=== PATIENT | female | born 1955 | race Caucasian/White ===

== ENCOUNTER → 2016-11-06 | Outpatient (CLI) | payer MEDICARE ==
--- NOTE | 2016-11-06 13:08 | MR ---
EXAMINATION TYPE: MR brain wo con DATE OF EXAM: 11/06/2016 1:01 PM. COMPARISON: NONE. HISTORY: Headache. Technique: Multiplanar, multiecho imaging of the brain was obtained without intravenous contrast. FINDINGS: Midline structures are unremarkable. There is a normal craniocervical junction. Echo planar diffusion imaging is normal. There are normal vascular flow voids. The orbits are normal. There is no evidence of a CP angle mass lesion. There are scattered, 1 to 2 mm high signal FLAIR lesions in the deep white matter tracts of the cereb ral hemispheres. These are nonspecific. A differential diagnosis includes migraine headache, hyperten radha, small vessel disease, demyelination and Lyme' s disease. There is no mass effect, midline shift or intracranial blood. IMPRESSION: 1. NO ACUTE INTRACRANIAL ABNORMALITY. 2. SCATTERED, TINY HIGH SIGNAL FLAIR LESIONS. DIFFERENTIAL DIAGNOSIS IS GIVEN ABOVE.
== END | disposition home or self-care (01) ==
LOC: RADMRIMAIN 12:15
PROVIDERS: ATTEND Nurse Practitioner Acute Care
DX: G93.9 Disorder of brain, unspecified (principal)
CPT/HCPCS: 70551

== ENCOUNTER 2017-07-07 16:16 | Observation (INO) | payer MEDICARE ==
[2017-07-07] MEDS ORDERED: NITROGLYCERIN OINT 1 INCH/GM PACKET TOPICAL STA (16:24)
--- NOTE | 2017-07-07 16:41 | ED ---
General Adult HPI - General Chief complaint: Chest Pain Stated complaint: Chest Pain Time Seen by Provider: 07/07/17 16:20 Source: patient, RN notes reviewed Mode of arrival: EMS Limitations: no limitations - History of Present Illness Initial comments: This is a 62-year-old female who presents to the emergency department complaining of chest pain. EMS got to the scene and the patient was complaining of heaviness on her chest and shortness of breath. EMS gave her 2 sublingual nitroglycerin at which point in time her pressure dropped and she became very diaphoretic. Patient stated to the social sciences research scientist that her chest pain was actually getting worse. Currently the patient states her chest pain is no worse than it was and she is still somewhat short of breath. But her lightheadedness is feeling better. Patient denies any nausea or vomiting. Patient denies headache patient denies numbness weakness. Patient denies any diabetes hypertension high cholesterol. Patient denies smoking. Patient denies any family history of heart disease. - Related Data Home Medications Medication Instructions Recorded Confirmed Estradiol [Climara 0.025 MG] 1 patch TRANSDERM WE 07/07/17 07/07/17 Ferrous Sulfate [Feosol] 325 mg PO DAILY 07/07/17 07/07/17 Gabapentin 600 mg PO HS 07/07/17 07/07/17 Levothyroxine Sodium [Synthroid] 125 mcg PO DAILY 07/07/17 07/07/17 Magnesium Oxide [Mag-Ox] 250 mg PO BID 07/07/17 07/07/17 Progesterone, Micronized 200 mg PO DIRECTED 07/07/17 07/07/17 [Progesterone] SUMAtriptan SUCCINATE [Imitrex] 100 mg PO DAILY PRN 07/07/17 07/07/17 SUMAtriptan SUCCINATE [Sumavel 6 mg SQ DAILY PRN 07/07/17 07/07/17 Dosepro] Zolpidem [Ambien] 10 mg PO HS 07/07/17 07/07/17 Allergies Allergy/AdvReac Type Severity Reaction Status Date / Time No Known Allergies Allergy Verified 07/07/17 16:47 Review of Systems ROS Statement: Those systems with pertinent positive or pertinent negative responses have been documented in the HPI. ROS Other: All systems not noted in ROS Statement are negative. Past Medical History Past Medical History: Thyroid Disorder History of Any Multi-Drug Resistant Organisms: None Reported Additional Past Surgical History / Comment(s): gastric bypass Past Psychological History: No Psychological Hx Reported Smoking Status: Never smoker Past Alcohol Use History: None Reported Past Drug Use History: None Reported General Exam - General Exam Comments Initial Comments: GENERAL: Patient is well-developed and well-nourished. Patient is nontoxic and well- hydrated and is in mild distress. ENT: Neck is soft and supple. No significant lymphadenopathy is noted. Oropharynx is clear. Moist mucous membranes. Neck has full range of motion without eliciting any pain. EYES: The sclera were anicteric and conjunctiva were pink and moist. Extraocular movements were intact and pupils were equal round and reactive to light. Eyelids were unremarkable. PULMONARY: Unlabored respirations. Good breath sounds bilaterally. No audible rales rhonchi or wheezing was noted. CARDIOVASCULAR: There is a regular rate and rhythm without any murmurs gallops or rubs. ABDOMEN: Soft and nontender with normal bowel sounds. No palpable organomegaly was noted. There is no palpable pulsatile mass. SKIN: Skin is clear with no lesions or rashes and otherwise unremarkable. NEUROLOGIC: Patient is alert and oriented x3. Cranial nerves II through XII are grossly intact. Motor and sensory are also intact. Normal speech, volume and content. Symmetrical smile. MUSCULOSKELETAL: Normal extremities with adequate strength and full range of motion. No lower extremity swelling or edema. No calf tenderness. LYMPHATICS: No significant lymphadenopathy is noted PSYCHIATRIC: Normal psychiatric evaluation. Normal interpersonal interactions appears functionally intact in deals appropriately with others. No signs of depression. No signs of anxiety. Limitations: no limitations Course Vital Signs 07/07/17 16:25 Temperature 98 F Pulse Rate 64 Respiratory 22 Rate Blood Pressure 124/62 O2 Sat by Pulse 100 Oximetry Medical Decision Making - Medical Decision Making EKG shows normal sinus rhythm at 67 bpm ME interval is 126 dresses 82 QT interval 426 QTC of 450. Patient's EKG shows no ST segment elevation or depression or T wave normalities are noted Chest x-ray shows no acute abnormality. Patient states her chest pain is better. I spoke with Dr. Light admitted the patient I wrote admitting orders I consult at cardiology. I started the patient on heparin because the significance of her chest pain difficulty breathing and diaphoresis. - Lab Data Result diagrams: 07/07/17 15:32 07/07/17 15:32 Lab Results 07/07/17 07/07/17 07/07/17 Range/Units 15:32 15:32 15:32 WBC 8.1 (3.8-10.6) k/uL RBC 3.92 (3.80-5.40) m/uL Hgb 12.3 (11.4-16.0) gm/dL Hct 38.2 (34.0-46.0) % MCV 97.4 (80.0-100.0) fL MCH 31.3 (25.0-35.0) pg MCHC 32.2 (31.0-37.0) g/dL RDW 13.0 (11.5-15.5) % Plt Count 243 (150-450) k/uL Neutrophils % 39 % Lymphocytes % 48 % Monocytes % 5 % Eosinophils % 5 % Basophils % 1 % Neutrophils # 3.2 (1.3-7.7) k/uL Lymphocytes # 3.9 (1.0-4.8) k/uL Monocytes # 0.4 (0-1.0) k/uL Eosinophils # 0.4 (0-0.7) k/uL Basophils # 0.1 (0-0.2) k/uL PT (9.0-12.0) sec INR (<1.2) APTT (22.0-30.0) sec D-Dimer (<0.60) mg/L FEU Sodium 138 (137-145) mmol/L Potassium 3.4 L (3.5-5.1) mmol/L Chloride 108 H (98-107) mmol/L Carbon Dioxide 19 L (22-30) mmol/L Anion Gap 11 mmol/L BUN 14 (7-17) mg/dL Creatinine 0.80 (0.52-1.04) mg/dL Est GFR (MDRD) Af Amer >60 (>60 ml/min/1.73 sqM) Est GFR (MDRD) Non-Af >60 (>60 ml/min/1.73 sqM) Glucose 106 H (74-99) mg/dL Calcium 8.9 (8.4-10.2) mg/dL Magnesium 1.9 (1.6-2.3) mg/dL Total Bilirubin 0.3 (0.2-1.3) mg/dL AST 23 (14-36) U/L ALT 24 (9-52) U/L Alkaline Phosphatase 96 (38-126) U/L Total Creatine Kinase 64 (30-135) U/L CK-MB (CK-2) 0.5 (0.0-2.4) ng/mL CK-MB (CK-2) Rel Index 0.8 Troponin I <0.012 (0.000-0.034) ng/mL Total Protein 5.6 L (6.3-8.2) g/dL Albumin 3.5 (3.5-5.0) g/dL 07/07/17 Range/Units 15:32 WBC (3.8-10.6) k/uL RBC (3.80-5.40) m/uL Hgb (11.4-16.0) gm/dL Hct (34.0-46.0) % MCV (80.0-100.0) fL MCH (25.0-35.0) pg MCHC (31.0-37.0) g/dL RDW (11.5-15.5) % Plt Count (150-450) k/uL Neutrophils % % Lymphocytes % % Monocytes % % Eosinophils % % Basophils % % Neutrophils # (1.3-7.7) k/uL Lymphocytes # (1.0-4.8) k/uL Monocytes # (0-1.0) k/uL Eosinophils # (0-0.7) k/uL Basophils # (0-0.2) k/uL PT 10.2 (9.0-12.0) sec INR 1.0 (<1.2) APTT 21.6 L (22.0-30.0) sec D-Dimer 0.43 (<0.60) mg/L FEU Sodium (137-145) mmol/L Potassium (3.5-5.1) mmol/L Chloride (98-107) mmol/L Carbon Dioxide (22-30) mmol/L Anion Gap mmol/L BUN (7-17) mg/dL Creatinine (0.52-1.04) mg/dL Est GFR (MDRD) Af Amer (>60 ml/min/1.73 sqM) Est GFR (MDRD) Non-Af (>60 ml/min/1.73 sqM) Glucose (74-99) mg/dL Calcium (8.4-10.2) mg/dL Magnesium (1.6-2.3) mg/dL Total Bilirubin (0.2-1.3) mg/dL AST (14-36) U/L ALT (9-52) U/L Alkaline Phosphatase (38-126) U/L Total Creatine Kinase (30-135) U/L CK-MB (CK-2) (0.0-2.4) ng/mL CK-MB (CK-2) Rel Index Troponin I (0.000-0.034) ng/mL Total Protein (6.3-8.2) g/dL Albumin (3.5-5.0) g/dL Critical Care Time Critical Care Time: Yes Total Critical Care Time: 35 Disposition Clinical Impression: Unstable angina pectoris Disposition: ADMITTED IP TO THIS HOSP Referrals: Lawrence Dubon MD [Primary Care Provider] - 1-2 days Time of Disposition: 17:30
[2017-07-07 16:46] LABS: Basophils # (A) 0.1 k/uL (0-0.2); Basophils % (A) 1 %; CH 31.1; CHCM 32.1; Eosinophils # (A) 0.4 k/uL (0-0.7); Eosinophils % (A) 5 %; HCT 38.2 % (34.0-46.0); HDW 2.34; HGB 12.3 gm/dL (11.4-16.0); Luc # (Auto) 0.18; Luc % (Auto) 2; Lymphocytes # (A) 3.9 k/uL (1.0-4.8); Lymphocytes % (A) 48 %; MCH 31.3 pg (25.0-35.0); MCHC 32.2 g/dL (31.0-37.0); MCV 97.4 fL (80.0-100.0); Mean Platelet Volume 7.1; Monocytes # (A) 0.4 k/uL (0-1.0); Monocytes % (A) 5 %; Neutrophils # (A) 3.2 k/uL (1.3-7.7); Neutrophils % (A) 39 %; RBC 3.92 m/uL (3.80-5.40); WBC 8.1 k/uL (3.8-10.6); WBC (Perox) 8.18
--- NOTE | 2017-07-07 16:54 | XR ---
EXAMINATION TYPE: XR chest 2V DATE OF EXAM: 07/07/2017 COMPARISON: NONE HISTORY: Shortness of breath TECHNIQUE: Frontal and lateral views of the chest are obtained. FINDINGS: Scattered senescent parenchymal changes noted. Hyperinflation compatible with COPD. No evidence for infiltrate. No evidence for atelectasis. Heart size is stable. Mediastinal structures are stable and grossly unremarkable. No evidence for hilar prominence. Degenerative changes dorsal spine. IMPRESSION: 1. No evidence for acute pulmonary disease.
[2017-07-07 16:59] LABS: ALT 24 U/L (9-52); AST 23 U/L (14-36); Alkaline Phosphatase 96 U/L (38-126); Anion Gap 11 mmol/L; Blood Urea Nitrogen 14 mg/dL (7-17); Calcium 8.9 mg/dL (8.4-10.2); Carbon Dioxide 19 mmol/L (22-30); Chloride 108 mmol/L (98-107); Glucose 106 mg/dL (74-99); Magnesium 1.9 mg/dL (1.6-2.3); Non-African American GFR(MDRD) >60 (>60 ml/min/1.73 sqM); Potassium 3.4 mmol/L (3.5-5.1); Sodium 138 mmol/L (137-145); Total Bilirubin 0.3 mg/dL (0.2-1.3); Total Protein 5.6 g/dL (6.3-8.2)
[2017-07-07 17:01] LABS: Creatine Kinase 64 U/L (30-135)
[2017-07-07 17:06] LABS: Partial Thromboplastin Time 21.6 sec (22.0-30.0); Prothrombin Time 10.2 sec (9.0-12.0)
[2017-07-07 17:13] LABS: Creatine Kinase MB 0.5 ng/mL (0.0-2.4); Troponin I <0.012 ng/mL (0.000-0.034)
[2017-07-07] MEDS ORDERED: HEPARIN SODIUM,PORCINE 5,000 UNIT/ML 1 ML VIAL IV ONE (17:30)
[2017-07-07] MEDS ORDERED: HEPARIN SODIUM,PORCINE/D5W PMX 25,000 UNIT in DEXTROSE/WATER 1 500ML.BAG IV SCH (17:30)
[2017-07-07] MEDS ORDERED: NITROGLYCERIN SL TABS 0.4 MG TAB SUBLINGUAL PRN (17:31)
[2017-07-07 19:44] VITALS: BMI 26.4
[2017-07-07] MEDS ORDERED: SUMAtriptan SUCCINATE 50 MG TAB PO PRN (20:30)
[2017-07-07] MEDS ORDERED: PROGESTERONE MICRONIZED 200 MG PO SCH (20:30)
[2017-07-07] MEDS ORDERED: RX INFO: IV CONTRAST WAS GIVEN 1 EACH MISC MISCELLANE PRN (20:30)
[2017-07-07] MEDS ORDERED: GABAPENTIN 300 MG CAP PO SCH (21:00)
[2017-07-07] MEDS ORDERED: ZOLPIDEM 10 MG TAB PO SCH (21:00)
[2017-07-07] MEDS ORDERED: ACETAMINOPHEN TAB 325 MG TAB PO PRN (21:19)
--- NOTE | 2017-07-07 21:28 | CT ---
EXAMINATION TYPE: CT angio chest DATE OF EXAM: 07/07/2017 9:00 PM COMPARISON: NONE HISTORY: Mid chest pain and shortness of breath. CT DLP: 302.90 mGycm Automated exposure control for dose reduction was used. CONTRAST: CTA scan of the thorax is performed with IV Contrast, patient injected with 75 mL of Omnipaque 350, p ulmonary embolism protocol. . FINDINGS: LUNGS: The lungs are grossly clear, there is no concerning parenchymal mass or nodule identified. T here is no pleural effusion or pneumothorax seen. The tracheobronchial tree is patent. MEDIASTINUM: There is satisfactory enhancement of the pulmonary artery and its branches, there is no CT evidence for pulmonary embolism. There are no greater than 1 cm hilar or mediastinal lymph nodes. No pericardial effusion is seen. OTHER: No additional significant abnormality is seen. IMPRESSION: NO ACUTE PROCESS.
[2017-07-07] MEDS: MAGNESIUM OXIDE 400 MG TAB PO SCH (21:30)
[2017-07-07 23:01] LABS: Creatine Kinase 60 U/L (30-135)
[2017-07-07 23:13] LABS: Troponin I <0.012 ng/mL (0.000-0.034)
[2017-07-07 23:18] LABS: Creatine Kinase MB 0.5 ng/mL (0.0-2.4)
[2017-07-07] MEDS: NITROGLYCERIN OINT 1 INCH/GM PACKET TOPICAL SCH (23:46)
[2017-07-08 00:21] VITALS: TEMP 97.9
[2017-07-08 03:21] LABS: Cholesterol 98 mg/dL (<200); HDL Cholesterol 60 mg/dL (40-60)
[2017-07-08 03:37] LABS: Creatine Kinase 68 U/L (30-135)
[2017-07-08 03:50] LABS: Creatine Kinase MB 0.8 ng/mL (0.0-2.4); Troponin I <0.012 ng/mL (0.000-0.034)
[2017-07-08] MEDS: NITROGLYCERIN OINT 1 INCH/GM PACKET TOPICAL SCH (05:22)
--- NOTE | 2017-07-08 05:44 | HP ---
HISTORY AND PHYSICAL DATE OF SERVICE: 07/07/2007. CHIEF COMPLAINT: Chest pain. HISTORY: This 62-year-old woman with a past medical history of multiple medical problems including DVT, history of hypothyroidism, history of chronic migraines being followed by in the outpatient setting is complaining of chest pain. Patient apparently had a stress test about 2 years ago which was negative. The chest pain felt more like a heaviness and which is radiating to the left lower part in the lungs. No shortness of breath. EMS gave 2 sublingual nitro which resulted in hypotension and because of increasing pain the patient came to [facility] and was admitted to [facility] for further evaluation and treatment. There is no history of any fever, rigors. No headache, loss of consciousness or seizures. The patient also had episode of pleurisy previously. PAST MEDICAL HISTORY: History of DVT, history hypothyroidism, history of chronic migraine, history of epidural injections. MEDICATIONS PRIOR TO ADMISSION: Include home medications are: 1. Ambien 10 mg q.h.s. 2. Imitrex 100 mg daily p.r.n. 3. Progesterone 200 mg p.r.n. 4. Magnesium oxide 250 mg. 5. Synthroid 100 mcg p.o. daily. 6. Gabapentin 300 mg. 7. Iron sulfate 325 mg daily. 8. Climara 0.025 patch transderm. ALLERGIES: None. FAMILY HISTORY: History of diabetes and tremors in the family. SOCIAL HISTORY: No history of smoking. No history of alcohol. REVIEW OF SYSTEMS: ENT: No diminished hearing or vision. CARDIOVASCULAR: As mentioned. RESPIRATORY: As mentioned earlier. GI: As mentioned. : No dysuria. NERVOUS SYSTEMS: No numbness or weakness. ALLERGY/IMMUNOLOGY: No history of asthma or hayfever. MUSCULOSKELETAL: As mentioned earlier. HEMATOLOGY/ONCOLOGY: No history of anemia. ENDOCRINE: Hypothyroid. CONSTITUTIONAL: As mentioned earlier. DERMATOLOGY: Negative. RHEUMATOLOGY: Negative. PSYCHIATRY: As mentioned earlier. PHYSICAL EXAMINATION: Alert and oriented x3. Pulse 87, blood pressure 110/58, respiration 18, temperature 97.2, pulse ox 100% on 2 L. HEENT: Conjunctivae normal. Oral mucosa moist. NECK: No jugular venous distention. No carotid bruit. No lymph node enlargement. CARDIOVASCULAR: S1, S2 normal. No S3, no S4. RESPIRATORY: Breath sounds diminished in the bases. A few scattered rhonchi. No crackles. No adventitious sounds. ABDOMEN: Soft, nontender. No mass palpable. No hepatosplenomegaly. LEGS: No edema no swelling. NERVOUS SYSTEM: Higher functions as mentioned. Moves all four limbs. No focal motor deficits. LYMPHATICS: No lymphadenopathy in the neck, axillae or groin. SKIN: No rash, ulcer or bleeding. LAB: CBC within normal. D-dimer is 0.43, potassium 3.4. Troponin 5.6. The chest x- ray normal. EKG shows no acute change. ASSESSMENT: 1. Chest pain, rule out unstable angina. 2. Possible pleurisy or gastroesophageal reflux disease. 3. History of pleurisy previously. 4. History of negative stress test previously. 5. History of DVT. 6. History hypothyroidism. 7. History of chronic migraine. 8. History of epidural steroid injections. 9. History of section. RECOMMENDATIONS AND DISCUSSION: This 68-year-old woman who presented with multiple complex medical issues, will monitor the patient closely. Continue the current medications, continue symptomatic treatment. Otherwise, recommend resume home medications. D-dimer is a not elevated but however because of history of DVT and other factors I would recommend a CTA to rule out PE. Resume the home medications. Further recommendations to follow. See orders for further details. Otherwise prognosis guarded. Symptomatic treatment will be provided and further recommendations to follow. Also recommend close follow up with primary physician in the outpatient setting also. Discussed with the patient who understands and agrees. Further recommendations to follow. MMJEANETTEL / IJN: [id number] / SKY
[2017-07-08] MEDS ORDERED: LEVOTHYROXINE 125 MCG TAB PO SCH (06:30)
[2017-07-08 07:49] VITALS: RESP 16
[2017-07-08 08:04] VITALS: BP 101/59; PULSE 64
[2017-07-08] MEDS ORDERED: ASPIRIN 325 MG TAB PO SCH (09:00)
--- NOTE | 2017-07-08 10:21 | ECHOF ---
Referral Reason:chest pain MEASUREMENTS -------- HEIGHT: 180.3 cm WEIGHT: 86.2 kg BP: 100/49 RVIDd: 3.1 cm (< 3.3) IVSd: 1.0 cm (0.6 - 1.1) LVIDd: 4.3 cm (3.9 - 5.3) LVPWd: 1.1 cm (0.6 - 1.1) IVSs: 1.4 cm LVIDs: 2.8 cm LVPWs: 1.7 cm LA Diam: 3.6 cm (2.7 - 3.8) LAESV Index (A-L): 23.57 ml/m Ao Diam: 3.3 cm (2.0 - 3.7) AV Cusp: 2.3 cm (1.5 - 2.6) MV EXCURSION: 16.269 mm (> 18.000) MV EF SLOPE: 111 mm/s (70 - 150) EPSS: 0.3 cm MV E Yovani: 0.87 m/s MV DecT: 252 ms MV A Yovani: 0.80 m/s MV E/A Ratio: 1.09 RAP: 5.00 mmHg RVSP: 29.32 mmHg FINDINGS -------- Sinus rhythm. This was a technically good study. The left ventricular size is normal. Left ventricular wall thickness is normal. Overall left ventricular systolic function is normal with, an EF between 60 - 65 %. The right ventricle is normal in size. Normal LA size by volume 22+/-6 ml/m2. The right atrial size is normal. The aortic valve is trileaflet and appears structurally normal. There is trace mitral regurgitation. Mild tricuspid regurgitation present. Right ventricular systolic pressure is normal at < 35 mmHg. Trace/mild (physiologic) pulmonic regurgitation. The aortic root size is normal. The inferior vena cava is mildly dilated. There is no pericardial effusion. CONCLUSIONS -------- 1. Sinus rhythm. 2. There is trace mitral regurgitation. 3. Mild tricuspid regurgitation present. 4. Right ventricular systolic pressure is normal at < 35 mmHg. 5. Trace/mild (physiologic) pulmonic regurgitation. 6. The aortic root size is normal. 7. The inferior vena cava is mildly dilated. 8. There is no pericardial effusion. 9. This was a technically good study. 10. The left ventricular size is normal. 11. Left ventricular wall thickness is normal. 12. Overall left ventricular systolic function is normal with, an EF between 60 - 65 %. 13. The right ventricle is normal in size. 14. Normal LA size by volume 22+/-6 ml/m2. 15. The right atrial size is normal. 16. The aortic valve is trileaflet and appears structurally normal. BRA[employer]ING [employer]NACE FEEDER: Jahaira Smith RDCS
[2017-07-08] MEDS ORDERED: Potassium Replacement Protocol 1 EACH MISC MISCELLANE PRN (11:06)
--- NOTE | 2017-07-08 11:20 | P.CRDCN ---
History of Present Illness Consult date: 07/08/17 History of present illness: This is a 62-year-old female past medical history significant for hypothyroidism, migraines and DVT. She states yesterday she was standing on in the backyard watching her cut the grass when she had an acute left precordial chest heaviness. The pain radiated around under the left breast. She did not have any pain in the arm, neck, jaw or back. She states that she had a hard time taking a deep breath and became very diaphoretic and lightheaded. She felt that she was going to pass out but was able to steady herself. The pain persisted until she presented to the emergency room. She was given sublingual nitroglycerin which resulted in hypotension. She can specify no aggravating or alleviating factors. EKG reveals normal sinus mechanism. Cardiac enzymes are normal. Chest x-ray reveals no acute cardiopulmonary process CTA negative for pulmonary embolism. Potassium 3.4. BUN 14, creatinine 0.8, magnesium 1.9 d-dimer 0.43. Blood pressure 101/59 with a heart rate is 64. Patient states she does not follow with lease broker for any reason. Review of Systems Extensive review of systems performed, negative except mentioned in HPI. 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, insomnia, full body tremors History of Any Multi-Drug Resistant Organisms: None Reported Past Surgical History: Section, Tonsillectomy Additional Past Surgical History / Comment(s): gastric bypass , Past Anesthesia/Blood Transfusion Reactions: No Reported Reaction Past Psychological History: No Psychological Hx Reported Smoking Status: Never smoker Past Alcohol Use History: None Reported Past Drug Use History: None Reported - Past Family History Mother Family Medical History: Diabetes Mellitus Additional Family Medical History / Comment(s): Tremors Medications and Allergies Home Medications Medication Instructions Recorded Confirmed Type Estradiol [Climara 0.025 MG] 1 patch TRANSDERM WE 07/07/17 07/07/17 History Ferrous Sulfate [Iron (65 MG 325 mg PO DAILY 07/07/17 07/07/17 History Elemental)] Gabapentin 300 mg PO HS 07/07/17 07/07/17 History Levothyroxine Sodium [Synthroid] 125 mcg PO DAILY 07/07/17 07/07/17 History Magnesium Oxide [Mag-Ox] 250 mg PO BID 07/07/17 07/07/17 History Progesterone, Micronized 200 mg PO DIRECTED 07/07/17 07/07/17 History [Progesterone] SUMAtriptan SUCCINATE [Imitrex] 100 mg PO DAILY PRN 07/07/17 07/07/17 History Zolpidem [Ambien] 10 mg PO HS 07/07/17 07/07/17 History Acetaminophen Tab [Tylenol] 650 mg PO Q4HR PRN tab 07/08/17 Rx Famotidine [Pepcid] 20 mg PO BID #40 tablet 07/08/17 Rx Allergies Allergy/AdvReac Type Severity Reaction Status Date / Time No Known Allergies Allergy Verified 07/08/17 00:26 Physical Exam Vitals: Vital Signs Temp Pulse Pulse Resp BP BP BP 07/08/17 08:03 64 101/59 07/08/17 07:48 97.9 F 78 16 82/49 07/08/17 04:00 97.9 F 70 18 100/49 07/08/17 00:00 97.9 F 58 L 18 119/52 07/07/17 20:28 98 F 64 18 125/58 07/07/17 18:47 97.8 F 07/07/17 18:24 87 16 101/60 07/07/17 17:47 67 16 110/57 07/07/17 16:25 98 F 64 22 124/62 Pulse Ox 07/08/17 08:03 100 07/08/17 07:48 98 07/08/17 04:00 98 07/08/17 00:00 100 07/07/17 20:28 100 07/07/17 18:47 100 07/07/17 18:24 07/07/17 17:47 100 07/07/17 16:25 100 Intake and Output 07/07/17 07/08/17 07/08/17 22:59 06:59 14:59 Intake Total 470 Balance 470 Intake: IV 160 0.9 NS @ KVO 160 Intake, IV Titration 160 Amount Heparin Sodium,Porcine/ 160 D5w Pmx 25,000 unit In Dextrose/Water 1 500ml. bag @ 11.6 UNITS/KG/HR 19 .99 mls/hr IV .Q24H [facility] Rx#:[id number] Oral 150 Other: Voiding Method Toilet Toilet # Voids 2 Weight 86.2 kg GENERAL: Well-appearing, well-nourished and in no acute distress. NECK: Supple without JVD or thyromegaly. LUNGS: Breath sounds clear to auscultation bilaterally. Respiration equal and unlabored. No wheezes, rales or rhonchi. HEART: Regular rate and rhythm without murmurs, rubs or gallops. S1 and S2 heard. EXTREMITIES: Normal range of motion, no edema. No clubbing or cyanosis. Peripheral pulses intact and strong. Results 07/07/17 15:32 07/07/17 15:32 Cardiac Enzymes 07/07/17 07/07/17 07/07/17 Range/Units 15:32 15:32 22:07 AST 23 (14-36) U/L CK-MB (CK-2) 0.5 0.5 (0.0-2.4) ng/mL Troponin I <0.012 <0.012 (0.000-0.034) ng/mL 07/08/17 Range/Units 02:57 AST (14-36) U/L CK-MB (CK-2) 0.8 (0.0-2.4) ng/mL Troponin I <0.012 (0.000-0.034) ng/mL Coagulation 07/07/17 07/08/17 Range/Units 15:32 02:57 PT 10.2 (9.0-12.0) sec APTT 21.6 L 59.1 H (22.0-30.0) sec Lipids 07/08/17 Range/Units 02:57 Triglycerides 49 (<150) mg/dL Cholesterol 98 (<200) mg/dL HDL Cholesterol 60 (40-60) mg/dL CBC 07/07/17 Range/Units 15:32 WBC 8.1 (3.8-10.6) k/uL RBC 3.92 (3.80-5.40) m/uL Hgb 12.3 (11.4-16.0) gm/dL Hct 38.2 (34.0-46.0) % Plt Count 243 (150-450) k/uL Comprehensive Metabolic Panel 07/07/17 Range/Units 15:32 Sodium 138 (137-145) mmol/L Potassium 3.4 L (3.5-5.1) mmol/L Chloride 108 H (98-107) mmol/L Carbon Dioxide 19 L (22-30) mmol/L BUN 14 (7-17) mg/dL Creatinine 0.80 (0.52-1.04) mg/dL Glucose 106 H (74-99) mg/dL Calcium 8.9 (8.4-10.2) mg/dL AST 23 (14-36) U/L ALT 24 (9-52) U/L Alkaline Phosphatase 96 (38-126) U/L Total Protein 5.6 L (6.3-8.2) g/dL Albumin 3.5 (3.5-5.0) g/dL Current Medications Generic Name Dose Route Start Last Admin Trade Name Freq PRN Reason Stop Dose Admin Acetaminophen 650 mg 07/07/17 21:19 07/07/17 21:28 Tylenol Tab PO 650 mg Q4HR PRN Administration Fever and/ or Mild Pain Aspirin 325 mg 07/08/17 09:00 Aspirin PO DAILY [facility] Ferrous Sulfate 325 mg 07/08/17 12:00 Feosol PO 1200 [facility] Gabapentin 300 mg 07/07/17 21:00 07/07/17 21:29 Neurontin PO 300 mg HS [facility] Administration Heparin Sodium/Dextrose 25,000 500 mls @ 19.99 mls/hr 07/07/17 17:30 18:17 unit/ IV Solution IV 11.6 units/kg/hr .Q24H [facility] 19.99 mls/hr Protocol Administration 11.6 UNITS/KG/HR Levothyroxine Sodium 125 mcg 07/08/17 06:30 07/08/17 05:33 Synthroid PO 125 mcg 0630 [facility] Administration Magnesium Oxide 400 mg 07/07/17 21:00 07/07/17 21:30 Mag-Ox PO 400 mg BID [facility] Administration Miscellaneous Information 1 each 07/07/17 20:30 Rx Info: Iv Contrast Was Given MISCELLANE 07/09/17 20:31 DAILY PRN Per Protocol Nitroglycerin 1 inch 07/08/17 00:00 07/08/17 05:22 Nitro-Bid Oint TOPICAL Not Given Q6HR [facility] Nitroglycerin 0.4 mg 07/07/17 17:31 Nitrostat SUBLINGUAL Q5M PRN Chest Pain Sumatriptan Succinate 100 mg 07/07/17 20:30 07/07/17 22:11 Imitrex PO 100 mg DAILY PRN Administration Migraine Headache Zolpidem Tartrate 10 mg 07/07/17 21:00 07/07/17 22:14 Ambien PO 10 mg HS [facility] Administration Intake and Output 07/07/17 07/08/17 07/08/17 22:59 06:59 14:59 Intake Total 470 Balance 470 Intake: IV 160 0.9 NS @ KVO 160 Intake, IV Titration 160 Amount Heparin Sodium,Porcine/ 160 D5w Pmx 25,000 unit In Dextrose/Water 1 500ml. bag @ 11.6 UNITS/KG/HR 19 .99 mls/hr IV .Q24H [facility] Rx#:[id number] Oral 150 Other: Voiding Method Toilet Toilet # Voids 2 Weight 86.2 kg 07/07/17 15:32 07/07/17 15:32 Assessment and Plan Plan: ASSESSMENT 1. Chest pain, atypical 2. Hypokalemia PLAN Obtain 2-D echo and Doppler study to assess cardiac structure and function; Perform exercise stress test to evaluate for return of symptoms during exercise; Replace potassium per protocol; This testing is normal from a cardiac perspective the patient is stable for discharge home to follow-up with Dr. Og in 4 weeks. Nurse Practitioner note has been reviewed, I agree with a documented findings and plan of care. Patient was seen and examined.
[2017-07-08] MEDS: MAGNESIUM OXIDE 400 MG TAB PO SCH (11:28)
[2017-07-08] MEDS: POTASSIUM CHLORIDE ER 20 MEQ TAB.ER PO SCH ×2 (11:28→12:02)
--- NOTE | 2017-07-08 11:39 | EST ---
EXERCISE STRESS AGE: 62 SEX: F HT: 70" WT: 190 PROTOCOL: GRACIELA STRESS TEST STAGE: II DURATION OF EXERCISE: 6 minutes HEART RATE REST: 116 BLOOD PRESSURE REST: 148/76 MAXIMUM HEART RATE ACHIEVED: 163 MAXIMUM BLOOD PRESSURE: 182/52 85% MPHR: 136 100% MPHR: 160 METS: 7.0 INDICATIONS: Chest pain. CLINICAL INFORMATION: Baseline EKG shows sinus rhythm, normal axis, normal intervals. The patient exercised on Graciela protocol for a total of 6 minutes achieving 7 mets, 100% of predicted maximal heart rate without chest pain or diagnostic ST-segment depression. CONCLUSIONS: 1. Average exercise tolerance. 2. Negative stress test by EKG criteria. MMODL / IJN: [id number] /
[2017-07-08] MEDS ORDERED: FERROUS SULFATE 325 MG TAB PO SCH (12:00)
--- NOTE | 2017-07-08 16:26 | P.DS ---
Providers Date of admission: 07/07/17 17:31 Attending physician: Delores Light Consults: 07/07/17 17:31 Consult Physician Urgent Consulting Provider: [facility] Consult Reason/Comments: Unstable angina Do you want consulting provider notified?: Yes Primary care physician: Lawrnece Dubon [facility] Course: This 62-year-old woman was admitted chest pain to [facility]. Myocardial infarction was ruled out. Cardiology performed a stress test. the stress test showed no evidence of cardiac ischemia. Patient be discharged in a stable condition with guarded prognosis. On exam vitals stable. Cardio S1 and S2 normal. Abdomen soft nontender. Chest clear to oscillation. Final diagnoses 1. Chest pain possibly muscle skeletal or GERD. 2. History of pleurisy previously 3. History negative stress as previously 5. History of DVT. Patient Condition at Discharge: Serious Plan - Discharge Summary New Discharge Prescriptions: New Acetaminophen Tab [Tylenol] 650 mg PO Q4HR PRN tab PRN Reason: Fever and/ or Mild Pain Famotidine [Pepcid] 20 mg PO BID #40 tablet Continue Magnesium Oxide [Mag-Ox] 250 mg PO BID Ferrous Sulfate [Iron (65 MG Elemental)] 325 mg PO DAILY SUMAtriptan SUCCINATE [Imitrex] 100 mg PO DAILY PRN PRN Reason: Migraine Headache Progesterone, Micronized [Progesterone] 200 mg PO DIRECTED Levothyroxine Sodium [Synthroid] 125 mcg PO DAILY Gabapentin 300 mg PO HS Estradiol [Climara 0.025 MG] 1 patch TRANSDERM WE Zolpidem [Ambien] 10 mg PO HS Discharge Medication List Estradiol [Climara 0.025 MG] 1 patch TRANSDERM WE 07/07/17 [History] Ferrous Sulfate [Iron (65 MG Elemental)] 325 mg PO DAILY 07/07/17 [History] Gabapentin 300 mg PO HS 07/07/17 [History] Levothyroxine Sodium [Synthroid] 125 mcg PO DAILY 07/07/17 [History] Magnesium Oxide [Mag-Ox] 250 mg PO BID 07/07/17 [History] Progesterone, Micronized [Progesterone] 200 mg PO DIRECTED 07/07/17 [History] SUMAtriptan SUCCINATE [Imitrex] 100 mg PO DAILY PRN 07/07/17 [History] Zolpidem [Ambien] 10 mg PO HS 07/07/17 [History] Acetaminophen Tab [Tylenol] 650 mg PO Q4HR PRN tab 07/08/17 [Rx] Famotidine [Pepcid] 20 mg PO BID #40 tablet 07/08/17 [Rx] Follow up Appointment(s)/Referral(s): Lawrence Dubon MD [Primary Care Provider] - 1-2 days Jakob Og MD [STAFF PHYSICIAN] - 4 Weeks Patient Instructions/Handouts: Chest Pain (DC) Activity/Diet/Wound Care/Special Instructions: diet cardiac act limited till f/u Discharge Disposition: HOME SELF-CARE
== END 2017-07-08 12:23 | disposition home or self-care (01) ==
LOC: EC 16:16 → 3OBS 17:31
PROVIDERS: ADMIT Hospitalist; ATTEND Hospitalist
DX: R07.89 Other chest pain (principal); R06.02 Shortness of breath; R61 Generalized hyperhidrosis; R42 Dizziness and giddiness; I95.9 Hypotension, unspecified; G47.00 Insomnia, unspecified; R25.1 Tremor, unspecified; E87.6 Hypokalemia; E03.9 Hypothyroidism, unspecified; G43.909 Migraine, unspecified, not intractable, without status migrainosus; Z79.899 Other long term (current) drug therapy; Z79.890 Hormone replacement therapy; Z98.84 Bariatric surgery status; Z86.718 Personal history of other venous thrombosis and embolism; Z83.3 Family history of diabetes mellitus
CPT/HCPCS: 99291; 96365; 96376 ×2; 96366 ×2; 36415; 93005; 93017; 93306; 85379; 84439; 80061; 80053; 84443; 82550 ×2; 82553 ×2; 83735; 84484 ×2; 85025; 85610; 85730 ×2; 71020; 71275; G0378 ×2; J1644 ×2; Q9967